=== PATIENT | female | born 2000 | race Caucasian/White ===

== ENCOUNTER → 2022-09-27 | Outpatient (CLI) | payer BC | LOC: M WHC 06:42 | PROVIDERS: ATTEND Specialist | DX: Z34.81 Encounter for supervision of other normal pregnancy, first trimester (principal) ==

== ENCOUNTER → 2022-10-28 | Outpatient (CLI) | payer BC ==
[2022-10-28 15:18] LABS: HEMATOCRIT 36.4 % (36.0-47.0); HEMOGLOBIN 12.2 g/dl (12.0-15.5); MEAN CORPUSCULAR HEMOGLOBIN 30.4 pg (27.0-33.0); MEAN CORPUSCULAR HGB CONC 33.5 g/dl (32.0-36.5); MEAN CORPUSCULAR VOLUME 90.8 fl (80.0-96.0); PLATELET COUNT, AUTOMATED 266 10^3/uL (150-450); RED BLOOD COUNT 4.01 10^6/uL (4.00-5.40); WHITE BLOOD COUNT 8.9 10^3/uL (4.0-10.0)
[2022-10-28 16:49] LABS: GC DNA AMPLIFICATION NEGATIVE (NEGATIVE)
== END ==
LOC: M PLALAB 08:35
PROVIDERS: ATTEND Obstetrics & Gynecology
DX: Z34.92 Encounter for supervision of normal pregnancy, unspecified, second trimester (principal)

== ENCOUNTER → 2022-10-28 | Outpatient (CLI) | payer BC | LOC: M WHC 06:48 | PROVIDERS: ATTEND Obstetrics & Gynecology | DX: Z34.92 Encounter for supervision of normal pregnancy, unspecified, second trimester (principal) ==

== ENCOUNTER → 2023-01-11 | Outpatient (REF) | payer BC, OTHER | LOC: M PLALAB 07:38 | PROVIDERS: ATTEND Advanced Practice Midwife | DX: Z34.80 Encounter for supervision of other normal pregnancy, unspecified trimester (principal); Z53.9 Procedure and treatment not carried out, unspecified reason ==

== ENCOUNTER → 2023-09-15 | Outpatient (REF) ==
[~2023-09-15] MED LIST: ACET-683 PO; CHEL100T4 PO; COLA100C5 PO; IBUP-1022 PO; PRENTAB9 PO; VITA100065 PO; [UNRECOGNIZED DRUG - CODE] PO
== END ==
LOC: M EMP 12:42
PROVIDERS: ATTEND Family Medicine
DX: Z11.52 Encounter for screening for COVID-19 (principal)

== ENCOUNTER → 2024-02-19 | Outpatient (CLI) | payer OTHER ==
[2024-02-19 10:51] LABS: HEMATOCRIT 39.9 % (36.0-47.0); HEMOGLOBIN 13.7 g/dl (12.0-15.5); MEAN CORPUSCULAR HEMOGLOBIN 30.4 pg (27.0-33.0); MEAN CORPUSCULAR HGB CONC 34.3 g/dl (32.0-36.5); MEAN CORPUSCULAR VOLUME 88.5 fl (80.0-96.0); PLATELET COUNT, AUTOMATED 249 10^3/uL (150-450); RED BLOOD COUNT 4.51 10^6/uL (4.00-5.40); WHITE BLOOD COUNT 6.9 10^3/uL (4.0-10.0)
[2024-02-19 11:51] LABS: HIV 1&2 SCREEN NEGATIVE (NEGATIVE)
[2024-02-19 11:59] LABS: HEPATITIS C VIRUS ABY INDEX 0.04 INDEX (<0.8)
[2024-02-19 12:18] LABS: GC DNA AMPLIFICATION NEGATIVE (NEGATIVE)
== END ==
LOC: M PLALAB 08:41
PROVIDERS: ATTEND Obstetrics & Gynecology
DX: Z34.91 Encounter for supervision of normal pregnancy, unspecified, first trimester (principal)

== ENCOUNTER → 2024-03-12 | Outpatient (REF) | payer OTHER | LOC: M SFHCWAGY 17:08 | PROVIDERS: ATTEND Nurse Practitioner Family | DX: Z34.82 Encounter for supervision of other normal pregnancy, second trimester (principal) ==

== ENCOUNTER → 2024-04-26 | Outpatient (CLI) | payer OTHER | LOC: M WHC 13:42 | PROVIDERS: ATTEND Nurse Practitioner Family | DX: O32.2XX0 Maternal care for transverse and oblique lie, not applicable or unspecified (principal); Z3A.20 20 weeks gestation of pregnancy ==

== ENCOUNTER → 2024-04-27 | Outpatient (REF) | payer OTHER ==
[2024-04-27 18:37] LABS: APPEARANCE, URINE CLEAR (CLEAR); BACTERIA, URINE AUTO NEGATIVE (NEGATIVE); BILIRUBIN, URINE AUTO NEGATIVE (NEGATIVE); BLOOD, URINE BLOOD NEGATIVE (NEGATIVE); COLOR, URINE YELLOW (YELLOW); GLUCOSE, URINE (UA) AUTO NEGATIVE (NEGATIVE); KETONE, URINE AUTO NEGATIVE (NEGATIVE); LEUKOCYTE ESTERASE, URINE AUTO NEGATIVE (NEGATIVE); MUCUS, URINE SMALL (NEGATIVE); NITRITE, URINE AUTO NEGATIVE (NEGATIVE); PROTEIN, URINE AUTO NEGATIVE (NEGATIVE); RBC, URINE AUTO 0 /HPF (0-3); SPECIFIC GRAVITY URINE AUTO 1.011 (1.002-1.035); SQUAMOUS EPITHELIAL CELL UR AU 1 /HPF (0-6); UROBILINOGEN, URINE AUTO 0.2 mg/dL (0.0-2.0); WBC, URINE AUTO 0 /HPF (0-3)
== END ==
LOC: M LAB REF 18:17
PROVIDERS: ATTEND Physician Assistant Medical
DX: N39.0 Urinary tract infection, site not specified (principal)

== ENCOUNTER → 2024-06-04 | Outpatient (CLI) | payer OTHER ==
[2024-06-04 10:55] LABS: GLUCOSE CHALLENGE TEST 1 HOUR 89 MG/DL (LESS THAN 140)
[2024-06-04 10:57] LABS: HEMATOCRIT 38.6 % (36.0-47.0); MEAN CORPUSCULAR HEMOGLOBIN 30.7 pg (27.0-33.0); MEAN CORPUSCULAR HGB CONC 33.7 g/dl (32.0-36.5); PLATELET COUNT, AUTOMATED 207 10^3/uL (150-450); RED BLOOD COUNT 4.24 10^6/uL (4.00-5.40); WHITE BLOOD COUNT 8.9 10^3/uL (4.0-10.0)
[2024-06-04 11:29] LABS: HIV 1&2 SCREEN NEGATIVE (NEGATIVE)
[2024-06-04 11:37] LABS: HEPATITIS C VIRUS ABY INDEX < 0.02 INDEX (<0.8)
[2024-06-04 12:10] LABS: GC DNA AMPLIFICATION NEGATIVE (NEGATIVE)
== END ==
LOC: M PLALAB 07:55
PROVIDERS: ATTEND Specialist
DX: Z34.92 Encounter for supervision of normal pregnancy, unspecified, second trimester (principal)

== ENCOUNTER → 2024-08-13 | Outpatient (REF) | payer OTHER | LOC: M PLALAB 07:28 | PROVIDERS: ATTEND Nurse Practitioner Family | DX: Z36.85 Encounter for antenatal screening for Streptococcus B (principal); Z3A.36 36 weeks gestation of pregnancy ==

== ENCOUNTER 2024-09-12 08:06 | Inpatient (IN) | payer OTHER ==
[~2024-09-12] VITALS: Ht 160 cm; Wt 72.8 kg
[2024-09-12] VITALS (10 sets, daily range): BP systolic 110–126; BP diastolic 57–82; O2SAT 98
[2024-09-12] MEDS ORDERED: HOME MED LIST COMPLETE! XX SCH (08:25)
[2024-09-12] MEDS ORDERED: OXYTOCIN DRIP 30 UNITS in IV 1 EA IV PRN (09:00)
[2024-09-12] MEDS ORDERED: CARBOPROST TROMETHAMINE 250 MCG/ML AMP IM PRN (09:00)
[2024-09-12] MEDS ORDERED: METHYLERGONOVINE MALEATE 0.2MG/ML 1ML VIAL IM PRN (09:00)
[2024-09-12] MEDS ORDERED: OXYTOCIN INJ 10UNITS/ML 1ML VIAL IM PRN (09:00)
[2024-09-12] MEDS: LR 1,000 ML IV SCH (09:18)
[2024-09-12] MEDS: PENICILLIN G POTASSIUM 5 MU IV 5 MU in DEXTROSE 5% (D5W) MINI-BAG PLU 100 ML IV STA (09:19)
[2024-09-12 09:33] LABS: HEMATOCRIT 40.7 % (36.0-47.0); HEMOGLOBIN 13.8 g/dl (12.0-15.5); MEAN CORPUSCULAR HEMOGLOBIN 30.3 pg (27.0-33.0); MEAN CORPUSCULAR HGB CONC 33.9 g/dl (32.0-36.5); MEAN CORPUSCULAR VOLUME 89.3 fl (80.0-96.0); PLATELET COUNT, AUTOMATED 196 10^3/uL (150-450); RED BLOOD COUNT 4.56 10^6/uL (4.00-5.40); WHITE BLOOD COUNT 9.1 10^3/uL (4.0-10.0)
[2024-09-12 10:28] LABS: HIV 1&2 SCREEN NEGATIVE (NEGATIVE)
[2024-09-12 10:36] LABS: HEPATITIS C VIRUS ABY INDEX 0.03 INDEX (<0.8)
[2024-09-12] MEDS: TRANEXAMIC ACID INJection 1,000 MG in NS 100 ML IV PRN (11:28)
[2024-09-12] MEDS: OXYTOCIN DRIP 30 UNITS in IV 1 EA IV PRN (11:29)
[2024-09-12] MEDS: LIDOCAINE 1% MDV 20ML VIAL INFIL PRN (11:46)
[2024-09-12] MEDS ORDERED: ACETAMINOPHEN 500 MG TAB PO PRN (11:55)
[2024-09-12] MEDS ORDERED: RHOGAM 300MCG (1500IU) INJ IM SCH (11:55)
[2024-09-12] MEDS ORDERED: METHYLERGONOVINE MALEATE 0.2 MG TAB PO PRN (11:55)
[2024-09-12] MEDS ORDERED: IBUPROFEN 800 MG TAB PO PRN (11:55)
[2024-09-12] MEDS ORDERED: PEN G POT 3,000,000 UNIT/50 ML 3,000,000 UNIT in IV 1 EA IV SCH (13:30)
[2024-09-12] MEDS: DIBUCAINE 1% OINTMENT 30GM TOP PRN (14:39)
[2024-09-13 06:00] VITALS: BP 113/77; O2SAT 98
[2024-09-13] MEDS: PRENATAL VITAMINS CHEWABLE TABLET PO SCH (08:04)
[2024-09-13] MEDS: IBUPROFEN 600MG TAB PO PRN (08:05)
[2024-09-13] MEDS: BOOSTRIX VACCINE (TETANUS/DIPHTH/ACEL. PERTUSSIS) 0.5ML SYR IM.IMMUN ONE (09:30)
[2024-09-13] MEDS: DOCUSATE SODIUM 100MG CAPSULE PO PRN (12:31)
[2024-09-13 18:00] VITALS: BP 112/69; O2SAT 100
[2024-09-13] MEDS: ACETAMINOPHEN 325 MG TAB PO PRN (23:47)
[2024-09-14 06:00] VITALS: BP 109/58; O2SAT 99
[2024-09-14] MEDS: MEASLES,MUMPS,RUBELLA VACCINE INJ (MMR-II) SC.IMMUN ONE (09:00)
== END 2024-09-14 12:30 | disposition home or self-care (01) | DRG 807 ==
LOC: M LDO 08:06 → M LDI 09:01 → M OBS 14:10
PROVIDERS: ADMIT Advanced Practice Midwife; ATTEND Advanced Practice Midwife
PROC: 10E0XZZ Delivery of Products of Conception, External Approach (ICD-10-PCS; principal; 2024-09-12)
PROC: 10907ZC Drainage of Amniotic Fluid, Therapeutic from Products of Conception, Via Natural or Artificial Opening (ICD-10-PCS; 2024-09-12)
PROC: 0HQ9XZZ Repair Perineum Skin, External Approach (ICD-10-PCS; 2024-09-12)
DX: O48.0 Post-term pregnancy (principal); Z37.0 Single live birth; Z3A.40 40 weeks gestation of pregnancy; Z88.2 Allergy status to sulfonamides; O70.0 First degree perineal laceration during delivery